=== PATIENT | female | born 1955 | race Caucasian/White ===

== ENCOUNTER 2020-05-25 09:02 | Outpatient (CLI) | payer MEDICARE ==
--- NOTE | 2020-05-25 11:01 | Ultrasound Report ---
LIMITED RUQ ABDOMINAL ULTRASOUND INDICATION: ABDOMINAL LUMP. COMPARISON: No relevant prior imaging study available. FINDINGS: Pancreas: Visualized portions show no significant abnormality. Abdominal Aorta: No significant abnormality. IVC: No significant abnormality. Liver: The liver measures 13.2 cm in length. No significant abnormality. Normal hepatopedal blood fl ow in the main portal vein. Gallbladder: Cholecystectomy. Bile ducts: No significant abnormality. Common bile duct measures 8.3 mm. Right kidney: No significant abnormality visualized. Free fluid: None. Additional Findings: Targeted ultrasound images were obtained at a palpable area in the right lower q uadrant. The images demonstrate a subcentimeter shadowing area that is poorly evaluated on ultrasound . No discrete mass or fluid collection is appreciated. This may represent a scar or soft tissue calci fications. If further evaluation is needed CT could be obtained.. IMPRESSION: Unremarkable right upper quadrant ultrasound. Cholecystectomy. Subcentimeter shadowing area in the right lower quadrant subcutaneous tissues as outlined above. A be nign etiology is suspected.. Signer Name: Michele Kendall Jr, MD Signed: 05/25/2020 10:56 AM Workstation Name: [id number]
== END 2020-05-25 09:03 | disposition home or self-care (01) ==
LOC: US 09:02
PROVIDERS: ATTEND Internal Medicine Gastroenterology
DX: R19.00 Intra-abdominal and pelvic swelling, mass and lump, unspecified site (principal); Z90.49 Acquired absence of other specified parts of digestive tract
CPT/HCPCS: 76705